=== PATIENT | female | born 1950 | race Caucasian/White ===

== ENCOUNTER → 2016-08-09 | Outpatient (CLI) | payer OTHER | LOC: BHFA 14:45 | PROVIDERS: ATTEND Internal Medicine Cardiovascular Disease | DX: Z51.11 Encounter for antineoplastic chemotherapy (principal) ==

== ENCOUNTER → 2016-08-10 | Outpatient (CLI) | payer OTHER ==
[~2016-08-10] MED LIST: LIDOCAINE 1% 30 ML SDV ONE; NA BICARBONATE 50 MEQ/50 ML VIAL ONE
== END ==
LOC: FIMAGING 11:49
PROVIDERS: ATTEND Internal Medicine Hematology & Oncology
PROC: 0WBF3ZX Excision of Abdominal Wall, Percutaneous Approach, Diagnostic (ICD-10-PCS; principal; 2016-08-10)
DX: C79.89 Secondary malignant neoplasm of other specified sites (principal); C54.1 Malignant neoplasm of endometrium

== ENCOUNTER 2016-12-28 02:53 | Emergency (ER) | payer OTHER ==
[2016-12-28 02:59] VITALS: RESP 16; TEMP 98.1
[2016-12-28] MEDS ORDERED: TRANEXAMIC ACID 1,000 MG/10 ML VIAL TP ONE (04:12)
--- NOTE | 2016-12-28 04:53 | EDPHY ---
H & P Stated Complaint: new bleeding from surgical incision from wound debridement yesterday Time Seen by Provider: 12/28/16 03:31 HPI/ROS: HPI The patient presents with bleeding from surgical incision site which has been present for the last several hours. She had a subcutaneous nodule from her endometrial cancer debrided by Dr. hackett again. She describes it as an oozing. She has soaked through her gauze. She has ongoing chemotherapy and thinks that 1 of her chemotherapeutic agents can cause bleeding. REVIEW OF SYSTEMS Constitutional: No fever, no chills. Eyes: No discharge. ENT: No sore throat. Cardiovascular: No chest pain, no palpitations. Respiratory: No cough, no shortness of breath. Gastrointestinal: No abdominal pain, no vomiting. Genitourinary: No hematuria. Musculoskeletal: No back pain. Skin: No rashes. Neurological: No headache. PMHx: Endometrial cancer Soc Hx: Lives at home with family PHYSICAL General Appearance: Alert, no distress Eyes: Pupils equal and round no pallor or injection ENT, Mouth: Mucous membranes moist Respiratory: There are no retractions, lungs are clear to auscultation Cardiovascular: Regular rate and rhythm Gastrointestinal: Abdomen is soft, there is a 3 cm wound in her left lower quadrant with large clot with losing surrounding it Neurological: A&O, moves all extremities Skin: Warm and dry, no rashes Musculoskeletal: Neck is supple non tender Extremities: symmetrical, full range of motion Psychiatric: Patient is oriented X 3, there is no agitation Source: Patient Exam Limitations: No limitations - Personal History Current Tetanus/Diphtheria Vaccine: Yes - Medical/Surgical History Hx Asthma: No Hx Chronic Respiratory Disease: No Hx Diabetes: No Hx Cardiac Disease: No Hx Renal Disease: No Hx Cirrhosis: No Hx Alcoholism: No Hx HIV/AIDS: No Hx Splenectomy or Spleen Trauma: No Other PMH: uterine cancer. hysterectomy. HTN - Social History Smoking Status: Never smoked Constitutional: Initial Vital Signs Temperature (C) 36.7 C 12/28/16 02:55 Heart Rate 99 12/28/16 02:55 Respiratory Rate 16 12/28/16 02:55 Blood Pressure 148/100 H 12/28/16 02:55 O2 Sat (%) 96 12/28/16 02:55 O2 Delivery Mode Room Air Allergies/Adverse Reactions: No Known Allergies Allergy (Verified 06/26/14 10:19) Home Medications: Medication Instructions Recorded Aspirin 81 mg PO 12/28/16 Ferrous Sulfate [High Potency Iron] 65 mg PO 12/28/16 Lenvatinib Mesylate [Lenvima] 10 mg PO BID 12/28/16 Levothyroxine [Synthroid 50 mcg 50 mcg PO DAILY06 12/28/16 (*)] Lisinopril/Hydrochlorothiazide 1 each PO 12/28/16 [Lisinopril-Hctz 10-12.5 mg Tab] Nitrofurantoin Macrobid [Macrobid] 100 mg PO BID 12/28/16 Pembrolizumab [Keytruda] 100 mg IV 12/28/16 amLODIPine BESYLATE [Amlodipine 10 mg PO 12/28/16 Besylate] Medical Decision Making Differential Diagnosis: This is a 66-year-old female with endometrial cancer with subcutaneous nodules, followed by the wound clinic with debridement performed yesterday, now presents with bleeding from the wound with large clot in place. Initially, Gel-Foam was placed with a pressure dressing without any improvement in the bleeding. Subsequently tranexamic acid was placed on the wound and then Surgicel cell was placed with improvement in the bleeding. She was discharged home. After the patient left the department, I consulted with Dr. Anthony, on-call for Dr. Mccann. The patient is instructed to call for follow-up to day and she will follow up with this. - Data Points Medications Given: Discontinued Medications Tranexamic Acid (Cyklokapron) 500 mg TP EDNOW ONE Stop: 12/28/16 04:13 Last Admin: 12/28/16 04:24 Dose: 500 mg Departure - Departure Disposition: Home, Routine, Self-Care Clinical Impression: Hematoma following procedure Condition: Good Instructions: Hematoma (ED) Additional Instructions: Please call the wound clinic to arrange for follow-up in the next few days. Return to the emergency room if your worse in any way. Referrals: Lilo Mccann MD [Medical Doctor] - As per Instructions
[2016-12-28 05:18] VITALS: BP 157/106; PULSE 88; O2SAT 95
== END 2016-12-28 05:16 | disposition home or self-care (01) ==
DX: L76.22 Postprocedural hemorrhage of skin and subcutaneous tissue following other procedure (principal); I10 Essential (primary) hypertension; Z85.42 Personal history of malignant neoplasm of other parts of uterus; Z79.82 Long term (current) use of aspirin

== ENCOUNTER → 2017-01-29 | Outpatient (CLI) | payer OTHER | LOC: FIMAGING 08:55 | PROVIDERS: ATTEND Internal Medicine Hematology & Oncology | DX: C54.1 Malignant neoplasm of endometrium (principal) | CPT/HCPCS: 78306; A9503 ==

== ENCOUNTER → 2017-03-07 | Outpatient (CLI) | payer OTHER | LOC: FIMAGING 09:29 | PROVIDERS: ATTEND Internal Medicine Hematology & Oncology | DX: K82.4 Cholesterolosis of gallbladder (principal); R79.89 Other specified abnormal findings of blood chemistry; D50.9 Iron deficiency anemia, unspecified; C54.1 Malignant neoplasm of endometrium ==

== ENCOUNTER → 2018-10-22 | Outpatient (CLI) | payer OTHER | LOC: FIMAGING 09:45 ==